=== PATIENT | male | born 1945 | race Caucasian/White ===

== ENCOUNTER → 2017-03-21 | Outpatient (CLI) | payer OTHER, MEDICARE ==
[~2017-03-21] VITALS: Ht 185.4 cm; Wt 99.8 kg
[~2017-03-21] MED LIST: CHLORTHALIDONE25 MG PO; PRADAXA150 MG PO; PRINIVIL20 MG PO; TOPROL XL25 MG PO; VITAMIN D1000 UNIT PO; ZOCOR20 MG PO
--- NOTE | ~2017-03-21 | CATHLAB ---
[facility] [address] [place] [address] INVASIVE PROCEDURE REPORT Name: MILAGROROSI RICO Room #: REG [facility] [id number] Admission: 03/21/17 Attend Phys: Rajendra Boyd MD Discharge: Date of : 49 Date of Service: 03/21/17 1733 Report #: [id number] THIS REPORT FOR: //name// APPROVED REPORT Patient Details Patient Status: Out-Patient Room #: The patient is a 71 year-old male Event Personnel Rajendra Boyd Sealer Dry Cell, Ruperto Edwards RN, Roseanne John Monitor, Nathalie Tovar Scrub Procedures Performed Art Access - R femoral artery* [id number] Initial Mod Sed Same Phys/QHP Gr5y [id number] Left Heart Cath w/or w/o Coronaries [id number] [facility] Hemostasis with Manual pressure Indication Atrial fibrillation, Dyspnea, Positive stress test Risk Factors Hypercholesterolemia, Hypertension Procedure Narrative The patient was brought electively to the Cardiac Catheterization Laboratory and was prepped and draped in a sterile manner. The Right Groin^ was infiltrated with 1% Lidocaine subcutaneous anesthesia. A PINNACLE 4FR Sheath #[id number] sheath was inserted into the RFA^. Coronary angiography was performed using coronary diagnostic catheters. The right coronary system was accessed and visualized with a JR 4 catheter. The left coronary system was accessed and visualized with a JL 5 catheter. The left ventricle was accessed and visualized with a Pigtail catheter. Left ventricular/Aortic Valve gradient assessed via catheter pullback. Left ventriculogram was performed in [place] projection. Hemostasis was obtained with manual pressure following sheath removal without any complications. The patient tolerated the procedure well and there were no complications associated with the procedure. There was no hematoma. Intraoperative Conscious Sedation Sedation start time: 11:14 Case end Time: 11:30 Fentanyl 2.5 mcg Versed 1.[address] [address] INVASIVE PROCEDURE REPORT Name: ROSI HUMPHREY Room #: REG [facility] [id number] Admission: 03/21/17 Attend Phys: Rajendra Boyd MD Discharge: Date of : 49 Date of Service: 03/21/17 1733 Report #: [id number] Fluoro Time: 4.04 minutes Dose: 9.51 mGy Contrast Type and Amount: Omnipaque 130 ml Coronary Angiography The patient's coronary anatomy is co- dominant. Diagnostic Cath Left Main Patent vessel, no flow limiting lesions. LAD Mild calcifications in proximal segment with mild to moderate diffuse disease, 30-40%. The mid and distal segments are patent with no flow-limiting lesions. Diagonal 1 Patent vessel, no flow limiting lesions. Circumflex Codominant system with no flow-limiting lesions. OM1 Patent vessel, with no flow-limiting lesions. OM2 Patent vessel, with no flow-limiting lesions. Right Coronary Mild disease in proximal segment, 20%. R PDA Patent vessel, with no flow-limiting lesions. Left Ventriculography The left ventricle is normal in size with normal contractility. The left ventricular ejection fraction is estimated to be 50-55%. Hemodynamics The aortic pressure is 141/92 mmHg with a mean of 114 mmHg. The left ventricular pressure is 115/16 mmHg with a mean of mmHg. The left ventricular end diastolic pressure is 29 mmHg. Conclusion 1. Mild to moderate disease in proximal LAD. 2. Codominant system. 3. Borderline lownormal LV systolic function. 4. Recommend medical therapy. <ELECTRONICALLY SIGNED> By: Rajendra Boyd MD 03/21/17 1733 [id number] Rajendra Boyd MD /INF
[2017-03-21 07:05] VITALS: BP 151/73
[2017-03-21 07:25] LABS: HEMATOCRIT 39.1 % (42.0-52.0); HEMOGLOBIN 13.3 gm/dL (14.0-18.0); MCH 29.8 pg (26.0-34.0); MCV 87.5 fL (80.0-100.0); RBC 4.47 mil/uL (4.50-6.00); RDW 14.1 % (10.5-14.5); WBC 4.6 thou/uL (4.0-11.0)
[2017-03-21 07:31] LABS: CREATININE 1.1 mg/dL (0.7-1.3); POTASSIUM 3.8 mmol/L (3.5-5.1)
== END | disposition home or self-care (01) ==
LOC: CATH 06:34
PROVIDERS: Internal Medicine Cardiovascular Disease
DX: I25.10 Atherosclerotic heart disease of native coronary artery without angina pectoris (principal); I48.91 Unspecified atrial fibrillation; I10 Essential (primary) hypertension; E78.00 Pure hypercholesterolemia, unspecified

== ENCOUNTER → 2018-06-03 | Outpatient (CLI) | payer OTHER, MEDICARE ==
--- NOTE | 2018-06-03 10:55 | 2DMMODE ---
[facility] [address] [place] [address] 2 D/M-MODE ECHOCARDIOGRAM Name: MILAGROROSI RICO Room #: [facility] [id number] ������������� Admission: 06/03/18 ������������� Attend Phys: Ilya Lind Discharge: ��� ������������� ��� Date of : 49 Date of Service: 06/03/18 1054 �� Report #: [id number] �������� ��������������������������������������������[id number] THIS REPORT FOR: //name// APPROVED REPORT Study performed: 06/03/2018 09:59:09 EXAM: Comprehensive 2D, Doppler, and color-flow Echocardiogram Patient Location: Out-Patient Room #: Echo lab 2 Status: routine BSA: 2.19 HR: 84 bpm BP: 128/88 mmHg Rhythm: Atrial Fibrillation Other Information Study Quality: Good Indications Atrial Fibrillation Hypertension/HDD 2D Dimensions RVDd: 50.41 mm IVSd: 16.71 (7-11mm) LVOT Diam: 22.01 (18-24mm) LVDd: 44.26 mm PWd: 17.17 (7-11mm) Ascending Ao: 36.98 (22-36mm) LVDs: 36.21 (25-40mm) Aortic Root: 39.61 mm IVC: 27.00 mm Volumes Left Atrial Volume (Systole) Single Plane 4CH: 158.07 mL Single Plane 2CH: 108.72 mL LA ESV Index: 65.00 mL/m2 Aortic Valve AoV Peak Anselmo.: 1.04 m/s AO Peak Gr.: 4.37 mmHg LVOT Max P.93 mmHg LVOT Max V: 0.69 m/s BILLY Vmax: 2.51 cm2 Pulmonary Valve PV Peak Anselmo.: 0.68 m/s PV Peak Gr.: 1.84 mmHg [facility] [address] [address] 2 D/M-MODE ECHOCARDIOGRAM Name: ROSI HUMPHREY Room #: REG [facility]#: [id number] ������������� Admission: 06/03/18 ������������� Attend Phys: Ilya Lind Discharge: ��� ������������� ��� Date of : 49 Date of Service: 06/03/18 1054 �� Report #: [id number] �������� ��������������������������������������������[id number] Tricuspid Valve TR Peak Anselmo.: 2.31 m/s TR Peak Gr.: 21.59 mmHg PA Pressure: 32.00 mmHg Left Ventricle The left ventricle is normal size. There is mild global hypokinesis of the left ventricle. Moderate concentric left ventricular hypertrophy. Left ventricular systolic function is mildly decreased. LVEF is 45-50%. This study is not technically sufficient to allow evaluation of the LV diastolic function due to atrial fibrillation. Right Ventricle Right ventricle is dilated. The right ventricular systolic function is normal. Atria Left atrium is dilated. Right atrium is dilated. Aortic Valve The aortic valve is normal in structure. No aortic regurgitation is present. There is no aortic valvular stenosis. Mitral Valve The mitral valve is normal in structure. Mild mitral regurgitation. No evidence of mitral valve stenosis. Tricuspid Valve The tricuspid valve is normal in structure. There is mild to moderate tricuspid regurgitation. Estimated PAP 32 mmHg. There is mild pulmonary hypertension. Pulmonic Valve The pulmonary valve is normal in structure. Mild pulmonic regurgitation. Great Vessels The aortic root is normal in size. IVC is dilated and collapses <50% with inspiration. Pericardium There is no pericardial effusion. <Conclusion> The left ventricle is normal size. [facility] [place] [address] 2 D/M-MODE ECHOCARDIOGRAM Name: MILAGRO,ROSI JACKY Room #: JEREMIAS Howard#: [id number] ������������� Admission: 06/03/18 ������������� Attend Phys: Ilya Lind Discharge: ��� ������������� ��� Date of : 49 Date of Service: 06/03/18 1054 �� Report #: [id number] �������� ��������������������������������������������[id number] Moderate concentric left ventricular hypertrophy. Left ventricular systolic function is mildly decreased. LVEF is 45-50%. Right ventricle is dilated. Left atrium is dilated. Right atrium is dilated. The aortic valve is normal in structure. Mild mitral regurgitation. There is mild to moderate tricuspid regurgitation. Estimated PAP 32 mmHg. There is mild pulmonary hypertension. The aortic root is normal in size. There is no pericardial effusion. ��������������������������������������������� <ELECTRONICALLY SIGNED> ���������������������������������������� By: Juve Ba MD, [facility] ��������������������������������������������� 06/03/18 1054 [id number] Juve Ba MD, FACC /INF
== END ==
LOC: CV 05-20 08:32
DX: I08.1 Rheumatic disorders of both mitral and tricuspid valves (principal); I48.91 Unspecified atrial fibrillation; I10 Essential (primary) hypertension; E78.5 Hyperlipidemia, unspecified; Z88.8 Allergy status to other drugs, medicaments and biological substances